=== PATIENT | male | born 1985 | race Caucasian/White ===

== ENCOUNTER 2018-12-07 09:54 | Emergency (ER) | payer OTHER ==
[2018-12-07 09:59] VITALS: BP 119/69; PULSE 90; TEMP 98.3; BMI 44.1
[2018-12-07] MEDS ORDERED: KETOROLAC TROMETHAMINE 30 MG/1 ML VIAL IVPUSH ONE (10:12)
[2018-12-07 10:58] LABS: EPI CELLS 4.6 /HPF (0-5/HPF); HYALINE CASTS 14 /lpf (0-8); URINE APPEARANCE CLEAR; URINE BILIRUBIN NEGATIVE (NEGATIVE); URINE COLOR YELLOW; URINE GLUCOSE (UA) NEGATIVE (NEGATIVE); URINE KETONE TRACE (NEGATIVE); URINE LEUK ESTERASE NEGATIVE (NEGATIVE); URINE NITRITE NEGATIVE (NEGATIVE); URINE PROTEIN 2+ (NEGATIVE); URINE RBC 3 /hpf (0-4); URINE WBC 3 /hpf (0-5)
[2018-12-07] MEDS ORDERED: KETOROLAC TROMETHAMINE 30 MG/1 ML VIAL ONE (10:58)
--- NOTE | 2018-12-07 11:17 | PDOC ---
History of Present Illness - General Chief Complaint: Pain Stated Complaint: ABD PAIN Time Seen by Provider: 12/07/18 10:10 History Source: Patient Exam Limitations: No Limitations - History of Present Illness Travel History: No Initial Comments: 12/07/18 10:12 33-year-old male with no medical history presents to ED with complaints of upper abdominal cramping associated with diarrhea intermittently for the past 2 weeks. Patient denies fever, chills, nausea, urinary complaints, bloody stool, or recent illness. Patient does state was in [place] 1 month ago but denies drinking Stateless water products or ice. Timing/Duration: reports: intermittent Quality: reports: mild Abdominal Pain Onset Location: reports: RUQ, epigastric Pain Radiation: reports: no radiation Activities at Onset: reports: none Aggravating Factors: improves with: None Alleviating Factors: improves with: None Past History - Travel Traveled outside of the country in the last 30 days: No Close contact w/someone who was outside of country & ill: No - Past Medical History Allergies/Adverse Reactions: Allergies Allergy/AdvReac Type Severity Reaction Status Date / Time No Known Allergies Allergy Verified 12/07/18 09:59 Home Medications: Ambulatory Orders NK [No Known Home Medication] 12/07/18 COPD: No Other medical history: morbid obese - Suicide/Smoking/Psychosocial Hx Smoking History: Current some day smoker Information on smoking cessation initiated: No Hx Alcohol Use: No Drug/Substance Use Hx: No Patient Lives Alone: No Lives with/in: parents Review of Systems - Review of Systems Able to Perform ROS?: Yes Constitutional: No: Symptoms Reported HEENTM: No: Symptoms Reported Respiratory: No: Symptoms reported Cardiac (ROS): No: Symptoms Reported ABD/GI: Yes: Diarrhea, Abdominal cramping : No: Symptoms Reported Musculoskeletal: No: Symptoms Reported Integumentary: No: Symptoms Reported Neurological: No: Symptoms reported Hematologic/Lymphatic: No: Symptoms Reported *Physical Exam - Vital Signs Last Vital Signs Temp Pulse Resp BP Pulse Ox 98.3 F 90 17 119/69 96 12/07/18 09:56 12/07/18 09:56 12/07/18 09:56 12/07/18 09:56 12/07/18 09:56 - Physical Exam General Appearance: Yes: Nourished, Appropriately Dressed. No: Apparent Distress Neck: positive: Normal Thyroid Respiratory/Chest: positive: Lungs Clear, Normal Breath Sounds. negative: Respiratory Distress, Accessory Muscle Use Cardiovascular: positive: Regular Rhythm, Regular Rate. negative: Murmur Gastrointestinal/Abdominal: positive: Soft, Tenderness (right upper quadrant / epigastric), Hepatomegaly Musculoskeletal: negative: CVA Tenderness Extremity: positive: Normal Capillary Refill Integumentary: positive: Normal Color, Warm, Moist Neurologic: positive: Motor Strength 5/5 (ambulatory) ED Treatment Course - LABORATORY CBC & Chemistry Diagram: 12/07/18 11:12 12/07/18 11:12 - ADDITIONAL ORDERS Additional order review: Laboratory Results 12/07/18 10:33 Urine Color Yellow Urine Appearance Clear Urine pH 6.0 Ur Specific [place] 1.033 Urine Protein 2+ H Urine Glucose (UA) Negative Urine Ketones Trace H Urine Blood Negative Urine Nitrite Negative Urine Bilirubin Negative Urine Urobilinogen 1.0 Ur Leukocyte Esterase Negative Urine WBC (Auto) 3 Urine RBC (Auto) 3 Urine Casts (Auto) 14 U Epithel Cells (Auto) 4.6 Urine Bacteria (Auto) 1.0 - RADIOLOGY Radiology Studies Ordered: Category Date Time Status ABDOMEN US -LIMITED [US] Stat Ultrasound 12/07/18 10:13 Ordered Medical Decision Making - Medical Decision Making 12/07/18 10:15 Chief complaint: Upper abdominal cramping 2 weeks now associated with diarrhea which he describes as brown and watery Exam: Right upper quadrant and epigastric tenderness, hepatomegaly Plan: Labs, urine, and abdominal ultrasound ordered. Patient also ordered for ova and parasite secondary to recent foreign travel 12/07/18 13:03 Laboratory Tests 12/07/18 12/07/18 12/07/18 11:12 11:12 11:12 WBC 12.7 H Hgb 16.4 Hct 47.7 Absolute Neuts (auto) 8.9 H Sodium 139 Potassium 5.6 H Chloride 114 H Carbon Dioxide 19 L Anion Gap 7 L Random Glucose 99 Calcium 8.9 Magnesium 2.4 AST 99 H ALT 98 H Alkaline Phosphatase 127 H Lipase 317 Patient unable to give specimen of stool while here in the ER. Patient will have hepatitis panel added secondary to elevated LFTs, recent travel, and hepatomegaly seen on ultrasound. Patient's potassium slightly hemolyzed and BUN and creatinine within normal limits. Patient will be given copy of ultrasound report along with labs and referral to office analyst Dr. Mcfarland. *DC/Admit/Observation/Transfer Diagnosis at time of Disposition: Diarrhea, Elevated LFTs, Hepatomegaly - Discharge Dispostion Disposition: HOME Condition at time of disposition: Good - Referrals Referrals: Michelle Mcfarland MD [Staff Physician] - - Patient Instructions Printed Discharge Instructions: DI for Diarrhea and Traveler's Diarrhea -- Adult, Liver Function Tests Additional Instructions: Today, your LFTs were noted to be elevated along with an enlarged liver either due to hepatocellular disease or fatty liver. At this time I recommend following up with referred office analyst but understand if you develop any worsening symptoms such as abdominal pain, severe diarrhea, yellowing of your skin or vomiting please return to the nearest ER. Hepatitis panel was also sent secondary to your recent travel and complaints - Post Discharge Activity
[2018-12-07 11:48] LABS: BASO % 0.5 % (0-2.0); EOS % 0.7 % (0-4.5); HEMATOCRIT 47.7 % (35.4-49); HEMOGLOBIN 16.4 GM/dL (11.7-16.9); LYMPH % 21.2 % (8-40); MCH 27.9 pg (25.7-33.7); MCHC 34.3 g/dl (32.0-35.9); MEAN CELL VOLUME 81.5 fl (80-96); MONO % 7.5 % (3.8-10.2); NEUT % 70.1 % (42.8-82.8); PLATELET COUNT 192 K/MM3 (134-434); RBC 5.86 M/mm3 (4.00-5.60); RDW 15.6 % (11.9-15.9); WHITE BLOOD COUNT 12.7 K/mm3 (4.0-10.0)
[2018-12-07 12:18] LABS: ALBUMIN 3.9 g/dl (3.4-5.0); BILIRUBIN,TOTAL 0.6 mg/dL (0.2-1); BLOOD UREA NITROGEN 15.4 mg/dL (7-18); CALCIUM 8.9 mg/dL (8.5-10.1); MAGNESIUM 2.4 mg/dL (1.8-2.4); POTASSIUM 5.6 mmol/L (3.5-5.1); TOT PROT 8.1 g/dl (6.4-8.2)
[2018-12-08 02:08] LABS: HEP.C VIRUS AB <0.1 s/co ratio (0.0-0.9)
== END 2018-12-07 13:50 | disposition home or self-care (01) ==
LOC: JER 09:54
PROC: 3E0333Z Introduction of Anti-inflammatory into Peripheral Vein, Percutaneous Approach (ICD-10-PCS; principal; 2018-12-07)
DX: R19.7 Diarrhea, unspecified (principal); R94.5 Abnormal results of liver function studies; R16.0 Hepatomegaly, not elsewhere classified
CPT/HCPCS: 36415; 76705-TC; 80053; 80074; 81003; 83690; 83735; 85025; 86704; 86706; 86707; 86708; 86709; 87340; 96374; 99283-25